=== PATIENT | female | born 1995 ===

== ENCOUNTER 2018-02-23 16:42 | Emergency (ER) | payer MEDICAID ==
[2018-02-23 16:43] VITALS: BMI 28.4
[2018-02-23] MEDS ORDERED: Sodium Chloride 0.9% 1,000 ML IV ONE (17:38)
[2018-02-23 18:01] LABS: HCG,QUALITATIVE URINE NEGATIVE (NEGATIVE)
[2018-02-23 18:03] LABS: SQUAMOUS EPITHIAL 11 /hpf (0-5); URINE BACTERIA FEW (<OCC); URINE BILIRUBIN NEGATIVE (NEGATIVE); URINE BLOOD NEGATIVE (NEGATIVE); URINE CLARITY Hazy (Clear); URINE COLOR Yellow (YELLOW); URINE GLUCOSE (UA) NORMAL (Normal); URINE LEUKOCYTE ESTERASE 2+ Leu/uL (Negative); URINE PROTEIN NEGATIVE (NEGATIVE)
--- NOTE | 2018-02-23 18:21 | C.PDOC ---
History Of Present Illness <JennHui C - Last Filed: 02/23/18 18:52> <Niko Ray - Last Filed: 02/23/18 20:57> Patient presents to ED with c/o chest pain and abdominal pain for 3 days. Patient states she has had similar symptoms in past and it "has attributed to menses". Patient denies sob, cough, palpitations, nausea, vomiting, dysuria, hematuria or an other complaints at this time. (Hui Barajas) History Per: Patient History/Exam Limitations: no limitations Onset/Duration Of Symptoms: Days Current Symptoms Are (Timing): Still Present Location Of Pain/Discomfort: Diffuse <Hui Barjaas - Last Filed: 02/23/18 18:52> <Niko Ray - Last Filed: 02/23/18 20:57> Time Seen by Provider: 02/23/18 17:38 Chief Complaint (Nursing): Abdominal Pain Past Medical History Reviewed: Historical Data, Nursing Documentation, Vital Signs - Medical History PMH: Hypercholesterolemia Surgical History: No Surg Hx Family History: States: No Known Family Hx - Social History Hx Tobacco Use: No Hx Alcohol Use: No Hx Substance Use: No - Immunization History Hx Tetanus Toxoid Vaccination: Yes Hx Influenza Vaccination: Yes Hx Pneumococcal Vaccination: Yes <Hui Barajas - Last Filed: 02/23/18 18:52> Vital Signs: Last Vital Signs Temp 97.8 F 02/23/18 18:53 Pulse 63 02/23/18 18:53 Resp 18 02/23/18 18:53 BP 113/71 02/23/18 18:53 Pulse Ox 98 02/23/18 18:53 - [facility] Procedures INFLUENZA VACCINATION (05/24/14) REPAIR OB LACERATION NEC (05/24/14) Review Of Systems Constitutional: Negative for: Fever, Chills Cardiovascular: Positive for: Chest Pain Gastrointestinal: Positive for: Abdominal Pain. Negative for: Nausea, Vomiting Genitourinary: Negative for: Dysuria Skin: Negative for: Rash Neurological: Negative for: Weakness, Numbness <Hui Barajas - Last Filed: 02/23/18 18:52> Physical Exam - Physical Exam Appears: Non-toxic, No Acute Distress, Other (obese) Skin: Warm, Dry, No Rash Head: Atraumatic, Normacephalic Eye(s): bilateral: Normal Inspection Oral Mucosa: Moist Neck: Normal ROM, Supple Chest: Symmetrical, No Tenderness Cardiovascular: Rhythm Regular, No Friction Rub, No Murmur Respiratory: Normal Breath Sounds, No Rales, No Rhonchi, No Wheezing Gastrointestinal/Abdominal: Soft, No Tenderness, No Guarding, No Rebound Back: No CVA Tenderness, No Paraspinal Tenderness Extremity: Normal ROM, Capillary Refill (<2 seconds), No Swelling Neurological/Psych: Oriented x3, Normal Speech, Normal Motor Gait: Steady <Hui Barajas - Last Filed: 02/23/18 18:52> ED Course And Treatment - Laboratory Results Result Diagrams: 02/23/18 18:34 ECG: Interpreted By Me, Viewed By Me ECG Rhythm: Sinus Rhythm ECG Interpretation: Normal Rate From EC (bpm) O2 Sat by Pulse Oximetry: 98 (RA) Pulse Ox Interpretation: Normal <Hui Barajas - Last Filed: 02/23/18 18:52> - Laboratory Results Result Diagrams: 02/23/18 18:34 02/23/18 18:34 <Niko Ray - Last Filed: 02/23/18 20:57> Disposition - Disposition Disposition Time: 18:52 <Hui Barajas - Last Filed: 02/23/18 18:52> Counseled Patient/Family Regarding: Diagnosis - Disposition Disposition Time: 20:57 - POA Present On Arrival: None <Nkio Ray - Last Filed: 02/23/18 20:57> - Disposition Referrals: [facility] [Outside] Condition: STABLE Prescriptions: Ciprofloxacin [Cipro] 1 tab PO BID #14 tab Instructions: Urinary Tract Infections in Adults Forms: [facility] (Slovenian) - Clinical Impression Clinical Impression: Dysmenorrhea, UTI (urinary tract infection) - PA / MEDICAL RECORDS TECH / Resident Statement MD/DO has reviewed & agrees with the documentation as recorded. - Scribe Statement The provider has reviewed the documentation as recorded by the Scribe <Hui Barajas - Last Filed: 02/23/18 18:52> <Niko Ray - Last Filed: 02/23/18 20:57> - Scribe Statement Paige Alan All medical record entries made by the Scribe were at my direction and personally dictated by me. I have reviewed the chart and agree that the record accurately reflects my personal performance of the history, physical exam, medical decision making, and the department course for this patient. I have also personally directed, reviewed, and agree with the discharge instructions and disposition. (Hui Barajas) Physician Patient Turnover Patient Signed Over To: Niko Ray Handoff Comments: Pending Chemistry and re-eval <Hui Barajas - Last Filed: 02/23/18 18:52>
[2018-02-23] MEDS ORDERED: Sodium Chloride 0.9% 1,000 ML ONE (18:36)
[2018-02-23 18:42] LABS: BASO % 0.5 % (0.0-2.0); EOS # 0.3 K/uL (0.0-0.7); EOS % 3.6 % (0.0-4.0); HEMOGLOBIN 11.9 g/dL (11.0-16.0); LYMPH # 2.5 K/uL (1.0-4.3); LYMPH % 28.3 % (20.0-40.0); MEAN CELL VOLUME 73.8 fL (81.0-99.0); MEAN CORPUSCULAR HEMOGLOBIN 24.1 pg (27.0-31.0); MEAN CORPUSCULAR HGB CONC 32.7 g/dL (33.0-37.0); MONO # 0.8 K/uL (0.0-0.8); MONO % 8.8 % (0.0-10.0); NEUT # 5.1 K/uL (1.8-7.0); NEUT % 58.8 % (50.0-75.0); NRBC % 0.1 % (0.0-2.0); RBC 4.94 Mil/uL (3.80-5.20); RED CELL DISTRIBUTION WIDTH 13.9 % (11.5-14.5); WHITE BLOOD COUNT 8.7 K/uL (4.8-10.8)
[2018-02-23 18:56] LABS: CALCIUM 9.2 mg/dl (8.6-10.4); GFR AFRICAN-AMERICAN > 60; GFR NON-AFRICAN AMERICAN > 60; LIPASE 50 U/L (23-300)
[2018-02-23 19:18] LABS: ALB/GLOB RATIO 1.2 (1.0-2.1); ALBUMIN 4.5 g/dL (3.5-5.0); ALT/SGPT 21 U/L (9-52); AST/SGOT 42 U/L (14-36); BLOOD UREA NITROGEN 9 mg/dL (7-17)
[2018-02-23 21:09] VITALS: BP 134/86; PULSE 60; RESP 16; TEMP 98.4; O2SAT 99
--- NOTE | 2018-02-24 23:28 | CARD ---
APPROVED REPORT EKG Measurement Heart [id number] <Conclusion> Normal sinus rhythm with sinus arrhythmia Normal ECG
== END 2018-02-23 21:08 | disposition home or self-care (01) ==
LOC: C.ER 16:42
DX: N39.0 Urinary tract infection, site not specified (principal); N94.6 Dysmenorrhea, unspecified; E78.00 Pure hypercholesterolemia, unspecified
CPT/HCPCS: 80053; 81001; 83690; 84703; 85025; 93005; 96361; 96374; 96375; 99284; J1885; J2405; J7030